=== PATIENT | male | born 1995 | race Caucasian/White ===

== ENCOUNTER 2023-09-01 19:21 | Emergency (ER) | payer SELFPAY ==
[~2023-09-01] VITALS: Ht 170.2 cm; Wt 75.0 kg
[2023-09-01 19:26] VITALS: BP 111/61; PULSE 93; RESP 18; TEMP 98.2; O2SAT 97
[2023-09-01] MEDS ORDERED: ONDANSETRON HCL 4MG/2ML INJ IV STA (19:29)
[2023-09-01] MEDS ORDERED: SODIUM CHLORIDE 0.9% 1,000 ML IV ONE (19:30)
[2023-09-01 22:01] LABS: DIFFERENTIAL COMMENT 1; HEMATOCRIT. 47.7 % (42.0-52.0); HEMOGLOBIN. 15.8 g/dL (14.0-18.0); MEAN CORPUSCULAR HEMOGLOBIN 27.2 pg (28.0-32.0); MEAN CORPUSCULAR HGB CONC 33.1 g/dL (31.0-37.0); MEAN CORPUSCULAR VOLUME 82.3 fL (80.0-94.0); MEAN PLATELET VOLUME 7.3 fl (7.4-10.4); PLATELET 371 x1000/uL (130-400); RED BLOOD CELL COUNT 5.79 mill/uL (4.7-6.1); RED CELL DISTRIBUTION WIDTH 12.9 % (11.6-14.6); WHITE BLOOD COUNT 10.4 x1000/uL (4.5-11.0)
[2023-09-01 22:02] LABS: ALANINE AMINOTRANSFERASE 116 IU/L (10-49); ALBUMIN 5.2 g/dL (3.2-4.8); ASPARTATE AMINOTRANSFERASE 48 IU/L (<34); BILIRUBIN TOTAL 1.2 mg/dL (0.1-1.0); CALCIUM 9.7 mg/dL (8.7-10.4); CARBON DIOXIDE 21 mEq/L (21-32); CHLORIDE 104 mEq/L (98-107); ETHANOL BLOOD 235 mg/dL (<10); GLUCOSE 103 mg/dL (70-105); PROTEIN TOTAL 8.3 g/dL (6.0-8.3); SODIUM 140 mEq/L (136-145); UREA NITROGEN BLOOD 9 mg/dL (9-23)
[2023-09-01 22:17] LABS: PLATELET ESTIMATE NORMAL
== END 2023-09-02 03:17 | disposition left against medical advice (07) ==
LOC: ER 19:21
DX: G92.9 Unspecified toxic encephalopathy (principal); F10.129 Alcohol abuse with intoxication, unspecified; F19.90 Other psychoactive substance use, unspecified, uncomplicated; Y90.9 Presence of alcohol in blood, level not specified
CPT/HCPCS: 80053; 80320; 85025; 36415; 96360; 99283; J7030; Z7610; G0480